=== PATIENT | male | born 1990 | race American Indian/Alaskan Native ===

== ENCOUNTER 2017-07-17 16:25 | Emergency (ER) | payer OTHER ==
[2017-07-17 16:51] LABS: Basophils % (Auto) 0.5 % (0.0-1.8); Eosinophils % (Auto) 3.5 % (0.0-4.3); Hematocrit 44.2 % (35.5-45.6); Hemoglobin 14.1 gm/dl (11.8-15.2); Mean Corpuscular HGB Conc 32 % (32-34); Mean Corpuscular Hemoglobin 27 pg (28-32); Mean Corpuscular Volume 85 fl (84-94); Platelet Count 223 K/mm3 (140-440); Red Blood Count 5.23 M/mm3 (3.65-5.03); Red Cell Distribution Width 13.4 % (13.2-15.2); White Blood Count 6.4 K/mm3 (4.5-11.0)
[2017-07-17 17:18] LABS: Anion Gap 19 mmol/L; BUN/Creatinine Ratio 17; Blood Urea Nitrogen 12 mg/dL (9-20); Carbon Dioxide 27 mmol/L (22-30); Chloride 100.3 mmol/L (98-107); Glucose 85 mg/dL (75-100); Potassium 4.3 mmol/L (3.6-5.0); Sodium 142 mmol/L (137-145)
--- NOTE | 2017-07-17 17:56 | XRay Report ---
FINAL REPORT EXAM: XR CHEST ROUTINE 2V HISTORY: CHEST PAIN TECHNIQUE: Frontal and lateral chest radiographs. PRIORS: None. FINDINGS: The cardiomediastinal silhouette is normal. No focal consolidation. No pleural effusion. No pneumothorax. No acute osseous abnormality. IMPRESSION: No acute cardiopulmonary process.
[2017-07-17 19:38] VITALS: BP 132/88
[2017-07-17] MEDS ORDERED: REGLAN IV ONE (20:30)
[2017-07-17] MEDS ORDERED: TORADOL IV ONE (20:30)
--- NOTE | 2017-07-17 20:34 | Emergency Department Report ---
ED Chest Pain HPI - General Chief Complaint: Chest Pain Stated Complaint: H/A CP Time Seen by Provider: 07/17/17 20:23 Source: patient Mode of arrival: Ambulatory Limitations: No Limitations - History of Present Illness Initial Comments: Patient is 26 years old male with no significant past medical history presented today with substernal chest pain for the last 2 months on and off, patient stated that his chest pain is associated with a headache global headache, associated with nausea and vomiting. Patient denied any fever cough or shortness of breath. Patient denied any weakness numbness or tingling sensation. No bowel or bladder incontinence. No neck stiffness. MD Complaint: chest pain -: Gradual, month(s) Onset: during rest, during exertion Pain Location: substernal Pain Radiation: none Severity scale (0 -10): 0 Quality: heaviness, sharp, squeezing Consistency: intermittent Improves With: nothing Worsens With: nothing - Related Data Allergies Allergy/AdvReac Type Severity Reaction Status Date / Time No Known Allergies Allergy Unverified 07/17/17 16:28 Heart Score - HEART Score History: Moderately suspicious EKG: Normal Age: < 45 Risk factors: No known risk factors Troponin: < normal limit HEART Score: 1 - Critical Actions Critical Actions: 0-3 pts:0.9-1.7%risk of adverse cardiac event.Candidate for discharge ED Review of Systems ROS: Stated complaint: H/A CP Other details as noted in HPI Comment: All other systems reviewed and negative Constitutional: denies: chills, fever Respiratory: denies: cough, orthopnea, shortness of breath, SOB with exertion, SOB at rest Cardiovascular: chest pain. denies: palpitations, dyspnea on exertion, edema, syncope, paroxysmal nocturnal dyspnea Gastrointestinal: nausea, vomiting. denies: abdominal pain, diarrhea, constipation, hematemesis, melena, hematochezia Genitourinary: denies: urgency, dysuria, frequency, hematuria, discharge, testicular pain, testicular mass Musculoskeletal: denies: back pain, joint swelling Neurological: headache. denies: weakness, confusion, abnormal gait, vertigo ED Past Medical Hx - Past Medical History Previous Medical History?: No - Surgical History Past Surgical History?: No - Social History Smoking Status: Never Smoker Substance Use Type: Marijuana ED Physical Exam - General Limitations: No Limitations General appearance: alert, in no apparent distress - Head Head exam: Present: atraumatic, normocephalic, normal inspection - Eye Eye exam: Present: normal appearance, PERRL - ENT ENT exam: Present: normal exam, normal orophraynx, mucous membranes moist - Neck Neck exam: Present: normal inspection, full ROM. Absent: tenderness, meningismus, lymphadenopathy, thyromegaly - Respiratory Respiratory exam: Present: normal lung sounds bilaterally - Cardiovascular Cardiovascular Exam: Present: regular rate, normal rhythm, normal heart sounds - GI/Abdominal GI/Abdominal exam: Present: soft, normal bowel sounds. Absent: distended, tenderness, guarding, rebound, rigid, organomegaly, mass, bruit, pulsatile mass , hernia - Extremities Exam Extremities exam: Present: normal inspection, full ROM, normal capillary refill - Back Exam Back exam: Present: normal inspection, full ROM. Absent: tenderness, CVA tenderness (R), CVA tenderness (L), muscle spasm, paraspinal tenderness - Neurological Exam Neurological exam: Present: alert, oriented X3, CN II-XII intact, normal gait, reflexes normal. Absent: abnormal gait, motor sensory deficit - Skin Skin exam: Present: warm, intact, normal color. Absent: cyanosis, diaphoretic, erythema ED Course Vital Signs 07/17/17 07/17/17 07/17/17 16:28 18:45 19:00 Temperature 97.7 F Pulse Rate 70 70 66 Respiratory 18 22 21 Rate Blood Pressure 141/74 122/74 112/64 Blood Pressure [Left] O2 Sat by Pulse 100 96 98 Oximetry 07/17/17 07/17/17 07/17/17 19:15 19:30 19:32 Temperature Pulse Rate 73 59 L Respiratory 14 20 21 Rate Blood Pressure 129/90 132/88 Blood Pressure [Left] O2 Sat by Pulse 98 100 Oximetry 07/17/17 07/17/17 07/17/17 19:37 20:15 20:33 Temperature 98.5 F Pulse Rate 64 67 67 Respiratory 21 14 Rate Blood Pressure 132/88 Blood Pressure 132/88 [Left] O2 Sat by Pulse 99 100 Oximetry 07/17/17 20:44 Temperature Pulse Rate Respiratory 18 Rate Blood Pressure Blood Pressure [Left] O2 Sat by Pulse Oximetry - Reevaluation(s) Reevaluation #1: 07/17/17 21:20 Patient stated that he is feeling much better, his headaches completely resolved , no nausea no vomiting. ED Medical Decision Making - Lab Data Result diagrams: 07/17/17 16:44 07/17/17 16:44 - EKG Data -: EKG Interpreted by Me EKG shows normal: sinus rhythm - EKG Data Interpretation: no acute changes - Radiology Data Radiology results: report reviewed Referring Physician: SURINDER GILLETTE Patient Name: JUNITO FUENTES Date of : 1990 Sex: Male Report Date: 2017-07-17 Report Status: Finalized Findings [facility] [address] [place] [address] Cat Scan Report Signed Patient: JUNITO FUENTES MR#: [id number] : 1990 Acct:[id number] Age/Sex: 26 / M ADM Date: 07/17/17 Loc: ED Attending Dr: Ordering Physician: SURINDER GILLETTE Date of Service: 07/17/17 Procedure(s): CT head/brain wo con Accession Number(s): [id number] cc: SURINDER GILLETTE FINAL REPORT PROCEDURE: CT HEAD/BRAIN WO CON TECHNIQUE: Computerized tomography of the head was performed without contrast material. HISTORY: headache COMPARISON: No prior studies are available for comparison. FINDINGS: Brain: Brain density appears normal. No evidence of intracranial hemorrhage. No parenchymal hemorrhage, mass lesions or mass effect are seen. No abnormal extraxial fluid collects or masses are seen. Ventricles: Ventricles are normal size and are midline. Bone Windows: No evidence of skull fracture. Paranasal sinuses: There is mild mucosal thickening in the gresham of the left side of the sphenoid sinus as well as posteriorly in the left maxillary sinus. The entire maxillary sinuses are not included on this exam. The paranasal sinuses visualized otherwise appear clear. Mastoid air cells: Clear IMPRESSION: Negative unenhanced CT of the brain. Mild paranasal sinus disease as described. Transcribed By: DFAleja Dictated By: IRVIN ALMONTE MD Electronically Authenticated By: IRVIN ALMONTE MD Signed Date/Time: 07/17/171713 DD/ 13 TD/TT: 07/17/171713 Critical care attestation.: If time is entered above; I have spent that time in minutes in the direct care of this critically ill patient, excluding procedure time. ED Disposition Clinical Impression: Headache, Chest pain, Sinusitis Disposition: TO HOME OR SELFCARE Is pt being admited?: No Condition: Stable Instructions: Chest Pain (ED), Acute Headache (ED), Sinusitis (ED) Referrals: PRIMARY CARE,MD [Primary Care Provider] - 3-5 Days
--- NOTE | 2017-07-17 21:18 | Cat Scan Report ---
FINAL REPORT PROCEDURE: CT HEAD/BRAIN WO CON TECHNIQUE: Computerized tomography of the head was performed without contrast material. HISTORY: headache COMPARISON: No prior studies are available for comparison. FINDINGS: Brain: Brain density appears normal. No evidence of intracranial hemorrhage. No parenchymal hemorrhage, mass lesions or mass effect are seen. No abnormal extraxial fluid collects or masses are seen. Ventricles: Ventricles are normal size and are midline. Bone Windows: No evidence of skull fracture. Paranasal sinuses: There is mild mucosal thickening in the gresham of the left side of the sphenoid sinus as well as posteriorly in the left maxillary sinus. The entire maxillary sinuses are not included on this exam. The paranasal sinuses visualized otherwise appear clear. Mastoid air cells: Clear IMPRESSION: Negative unenhanced CT of the brain. Mild paranasal sinus disease as described.
== END 2017-07-17 21:40 | disposition home or self-care (01) ==
LOC: ED 16:25
DX: R07.2 Precordial pain (principal); J32.9 Chronic sinusitis, unspecified; R51 Headache; F12.10 Cannabis abuse, uncomplicated
CPT/HCPCS: 36415; 70450; 71020; 80048; 84484; 85025; 93005; 93010; 96374; 96375; 99285; J1885; J2765